=== PATIENT | male | born 1955 | race Caucasian/White ===

== ENCOUNTER → 2020-04-04 | Outpatient (CLI) | payer MEDICARE, OTHER ==
[~2020-04-04] MED LIST: COLAZAL750 MG PO; HCTZ 25MG25 MG PO
== END ==
LOC: COL.LAB 11:31
DX: K51.50 Left sided colitis without complications (principal)

== ENCOUNTER 2020-10-19 11:03 | Outpatient (CLI) | payer MEDICARE, OTHER ==
[~2020-10-19] VITALS: Ht 172.8 cm; Wt 89.3 kg
[2020-10-19 11:41] LABS: BASO % 0.1 % (0.0-2.0); EOS % 0.3 % (0-4.0); GRAN # 6.5 (1.4-6.5); GRAN % 87.4 % (42.2-75.2); HEMATOCRIT 44.5 % (42.0-52.0); HEMOGLOBIN 14.9 g/dl (13.5-18.0); LYMPH # 0.7 (1.2-3.4); LYMPH % 9.7 % (20.0-51.0); MEAN CELL VOLUME 87 fl (80.0-100.0); MEAN CORPUSCULAR HEMOGLOBIN 29 pg (27.0-31.0); MEAN CORPUSCULAR HGB CONC 34 g/dl (33.0-37.0); MEAN PLATELET VOLUME 9.3 fl (7.4-10.4); MONO # 0.2 (0.1-0.6); MONO % 2.2 % (1.7-9.3); PLATELET COUNT 294 K/mm3 (130-400); RED BLOOD COUNT 5.11 M/mm3 (4.20-5.60); REDCELL DISTRIBUTION WIDTH-CV 12.5 % (11.5-14.5)
[2020-10-19] MEDS ORDERED: NORVASC 5MG5 MG/TAB PO (11:45)
[2020-10-19] MEDS ORDERED: PREDNISONE20 MG PO (11:45)
[2020-10-19] MEDS ORDERED: OSCAL 500 TAB500 MG PO (11:46)
[2020-10-19] MEDS ORDERED: GALZIN25 MG PO (11:46)
[2020-10-19] MEDS ORDERED: VITAMIN D250 MCG PO (11:46)
[2020-10-19] MEDS ORDERED: VOLTAREN GEL 1%1 TU TP (11:47)
[2020-10-19 11:54] VITALS: BP 135/85; PULSE 75; TEMP 98.2
[2020-10-19 11:55] LABS: ALBUMIN 4.1 gm/dL (3.5-5.0); TOTAL PROTEIN 7.5 gm/dL (6.4-8.2)
[2020-10-19 12:20] LABS: BILIRUBIN UNCONJUGATED 0.3 mg/dL (0.0-1.1); BILIRUBIN,TOTAL 0.3 mg/dL (0.0-1.0)
== END 2020-10-19 17:04 | disposition home or self-care (01) ==
LOC: EUO 11:03
PROVIDERS: Internal Medicine Gastroenterology
DX: K51.50 Left sided colitis without complications (principal)
CPT/HCPCS: J3358